=== PATIENT | male | born 1995 | race Caucasian/White ===

== ENCOUNTER → 2024-06-17 | Outpatient (CLI) | payer OTHER ==
[2024-06-17 16:58] VITALS: BP 113/68; PULSE 61; RESP 16; TEMP 98.1
--- NOTE | 2024-06-17 17:37 | P.SLEEP ---
History of Present Illness H&P Date: 06/17/24 Chief Complaint: Hypersomnia Is a 29-year-old the patient see me in the sleep center for hypersomnia it has been going on for the past 3 years. Prior to that, the patient had no issues with fatigue and sleepiness. Approximately 3 years ago, he started experiencing excessive fatigue and tiredness and sleepiness during the day and is currently at the point where he is falling asleep while driving and this occurred 1 time couple of weeks ago. 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 He goes to bed at around 9:30 PM and he wakes up 4:30 AM in the morning and on weekends, he wakes up 6:30 AM in the morning.. He has low motivation and a fall asleep while doing basic tasks. He has been noted to have some snoring. Has undergone a home sleep study through his primary care physician and the results came back negative. No history of head trauma. No meningitis. No encephalitis. No substance abuse. He has been diagnosed having depression in the past and he was treated with citalopram and currently is off treatment. No active signs of depression or anxiety or PTSD or bipolar disorder. The patient was taking naps during the day. Symptoms of sleepiness got worse after he eliminated those naps. His current [place] score is 20 out of 24. He is otherwise healthy. His body mass index is 21.9. He has not episodes of sleep paralysis and occasional hallucinations are also described by the patient where he has encountered limited dreams and images of the lungs and monsters while trying to wake up from sleep. No clear history of cataplexy although she was assessed, the patient has felt weak with buckling of the knees yet those occurred without any laughter or emotional upset does not take any medications for now. No reported grinding. No restlessness of lower extremities. No sleepwalking or sleep talking. No palpitations. No heartburn. No personal or family history of narcolepsy.. Review of Systems Constitutional: Reports daytime sleepiness, Denies chills, Denies fever Eyes: denies as per HPI, denies blurred vision, denies bulging eye, denies decreased vision, denies diplopia, denies discharge, denies dry eye, denies irritation, denies itching, denies pain, denies photophobia, denies loss of peripheral vision, denies loss of vision, denies tunnel vision/blind spots Ears: deny: decreased hearing, ear discharge, earache, tinnitus Ears, nose, mouth and throat: Reports as per HPI Breasts: absent: as per HPI, gynecomastia Cardiovascular: Reports as per HPI Respiratory: Reports as per HPI Gastrointestinal: Reports as per HPI Genitourinary: Reports as per HPI Musculoskeletal: Reports as per HPI Musculoskeletal: absent: ankle pain, ankle stiffness, ankle swelling, as per HPI, elbow pain, elbow stiffness, elbow swelling, foot pain, foot stiffness, foot swelling, hand pain, hand stiffness, hand swelling, hip pain, hip stiffness, hip swelling, knee pain, knee stiffness, knee swelling, shoulder pain, shoulder stiffness, shoulder swelling, wrist pain, wrist stiffness, wrist swelling Integumentary: Reports as per HPI Neurological: Reports as per HPI Psychiatric: Reports hypersomnia, Reports sleep disturbances Endocrine: Reports as per HPI, Reports fatigue Hematologic/Lymphatic: Reports as per HPI Allergic/Immunologic: Reports as per HPI Past Medical History Additional Past Medical History / Comment(s): Seasonal allergies History of Any Multi-Drug Resistant Organisms: None Reported Past Surgical History: No Surgical Hx Reported Past Psychological History: ADD/ADHD, Anxiety, Depression Additional Psychological History / Comment(s): Depression was diagnosed, ADHD and anxiety are not diagnosed. Smoking Status: Former smoker Past Alcohol Use History: Occasional Past Drug Use History: None Reported - Past Family History Mother Additional Family Medical History / Comment(s): Recently dx with autoimuune hepatitis. (also checking benign tumors or something - biopsy) Physical Exam Vitals: Vital Signs Temp Pulse Resp BP Pulse Ox 06/17/24 16:57 98.1 F 61 16 113/68 97 Intake and Output 06/17/24 06/17/24 06/17/24 06:59 14:59 22:59 Other: Weight 69.513 kg The patient appeared well nourished and normally developed. Vital signs as documented. Head exam is unremarkable. No scleral icterus or corneal arcus noted. Neck is without jugular venous distension, thyromegaly, or carotid bruits. Carotid upstrokes are brisk bilaterally. Lungs are clear to auscultation and percussion. Cardiac exam reveals the PMI to be normally sized and situated. Rhythm is regular. First and second heart sounds normal. No murmurs, rubs or gallops. Abdominal exam reveals normal bowel sounds, no masses, no organomegaly and no aortic enlargement. Extremities are nonedematous and both femoral and pedal pulses are normal. Examination of the skin revealed no evidence of significant rashes, suspicious appearing nevi or other concerning lesions. Neurologically, the patient is awake and alert and the patient does not have any focal neurological deficit. Cranial nerves are essentially intact. 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 Patient underwent a h ome sleep study through his primary care physician/Kimberli and the results were negative. He has encountered sleep paralysis and hallucinations. No clear-cut cataplexy. Rule out underlying narcoleptic disorder. Primary snoring Fall asleep while driving Previous history of COVID-19 infection more than 3 years ago. Plan The patient was given precautions not to drive specially when feeling drowsy or sleepy. Maintain regular sleep schedule as recommended Sleep hours on average of 8 to 9 hours per night in addition to power naps during the day The patient will need further investigation and this will include a polysomnography and a secondary MSLT. Will benefit from stimulation therapy and the choice of treatment will depend on the results of the PSG/MSLT. Avoid alcohol drinking. The patient has no substance abuse. Review of systems negative. No underlying medical disorder contributing to his pathologic hypersomnia. Sleep Note - Sleep Data ESS Total: 20 - Sleep Note Sleep Note: Temperature: 98.1 F Pulse Rate: 61 Respiratory Rate: 16 Blood Pressure: 113/68 SpO2: 97 Height: 5 ft 10 in Weight: 69.513 kg BMI: Neck Circumference: 14.5
== END ==
LOC: 3 N SLEEP 15:02
PROVIDERS: ATTEND Internal Medicine Critical Care Medicine
CPT/HCPCS: 99202

== ENCOUNTER 2024-07-14 19:46 | Outpatient (CLI) | payer OTHER ==
[2024-07-15 17:29] LABS: Urine Alcohol Negative (Negative); Urine Barbiturate Negative (Negative); Urine Cocaine Negative (Negative); Urine Methadone Negative (Negative); Urine Opiates Negative (Negative); Urine Phencyclidine Negative (Negative)
--- NOTE | 2024-07-21 19:42 | P.PCN ---
Date of Procedure: 07/14/24 Operative Findings: Polysomnography report History Is a 29-year-old the patient see me in the sleep center for hypersomnia it has been going on for the past 3 years. Prior to that, the patient had no issues with fatigue and sleepiness. Approximately 3 years ago, he started experiencing excessive fatigue and tiredness and sleepiness during the day and is currently at the point where he is falling asleep while driving and this occurred 1 time couple of weeks ago. 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 He goes to bed at around 9:30 PM and he wakes up 4:30 AM in the morning and on weekends, he wakes up 6:30 AM in the morning.. He has low motivation and a fall asleep while doing basic tasks. He has been noted to have some snoring. Has undergone a home sleep study through his primary care physician and the results came back negative. No history of head trauma. No meningitis. No encephalitis. No substance abuse. He has been diagnosed having depression in the past and he was treated with citalopram and currently is off treatment. No active signs of depression or anxiety or PTSD or bipolar disorder. The patient was taking naps during the day. Symptoms of sleepiness got worse after he eliminated those naps. His current [place] score is 20 out of 24. He is otherwise healthy. His body mass index is 21.9. He has not episodes of sleep paralysis and occasional hallucinations are also described by the patient where he has encountered limited dreams and images of the lungs and monsters while trying to wake up from sleep. No clear history of cataplexy although she was assessed, the patient has felt weak with buckling of the knees yet those occurred without any laughter or emotional upset does not take any medications for now. No reported grinding. No restlessness of lower extremities. No sleepwalking or sleep talking. No palpitations. No heartburn. No personal or family history of narcolepsy. Pertinent physical findings Body mass index is 22 and the weight is 153 pounds Technical description The patient was studied using a standard complex polysomnography protocol that included recording of the Lead II EKG, Central, occipital and frontal EEG, right and left outer canthus EOG, submental EMG, right and left anterior tibialis EMG, respiratory airflow by thermocouple and or pressure/flow transducer, respiratory efforts by abdominal and thoracic PVDF belts, oxygen saturation by cable oximetry. Position by observation synchronized the PSG. Equipment used: Gogo. Sleep characteristics The total time in bed was 447. 5 minutes. The total sleep time was 341.0 minutes. The overall sleep efficiency was 76.2%. The latency to sleep onset was 69 minutes. The sleep architecture was characterized by 0.6% stage I, 47.1% stage II, 20.4% stage III and a total of 32% REM sleep. The total arousal index was 8.3. The wake after sleep onset time was 36.5 minutes Respiratory analysis The patient had no obstructive events throughout the sleep study and the patient had a total of 5 central apneas with a central apnea index of 0.9. Oxygenation analysis The patient's baseline pulse ox while awake was 96%. No significant Vijaya desaturation was encountered throughout the sleep study. Minimum pulse ox was 94% Sleep continuity summary The patient had a total of 47 arousals with an index of 8.3. Respiratory arousal index was 0.2 Periodic limb movement The patient had a total of 3 periodic limb movement activity with arousals with an index of 0.5 Cardiac summary Average heart rate was 63 with a minimum heart rate of 57 and a maximum heart rate of 71 Assessment Primary snoring No evidence of any sleep breathing disorder. The patient's overall apnea- hypopnea index was 0. 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 He has encountered sleep paralysis and hallucinations. No clear-cut cataplexy. Rule out underlying narcoleptic disorder. Fall asleep while driving Previous history of COVID-19 infection more than 3 years ago. Plan This is a negative study for sleep breathing disorder. Will proceed with a secondary MSLT. MSLT report The MSLT was performed after a full night polysomnography during which there was more than 6 hours of sleep. The electrographic variables included EEG, EMG, EOG and EKG. Patient was monitored throughout 520-minute opportunities to nap at 2- hour intervals. For each nap, the patient was allowed 20 minutes to fall asleep. Once asleep, the patient was awakened after 15 minutes. Between naps, the patient was Alert. A sleep latency of 20 minutes indicated no sleep occurred. Results The patient was given a total of 5 opportunities to nap. Latency to nap #1 was 20 minutes, left #2 was 20 minutes, nap #3 was 7 minutes, night #4 was 16.5 minutes and that #5 was 20 minutes. The mean sleep latency for 5 naps was 16.7 minutes. No REM episodes or REM onset sleep was identified Impression Chronic hypersomnia, unexplained. No evidence of any sleep breathing disorder. The MSLT is not consistent with primary idiopathic hypersomnia or narcolepsy. Rule out insufficient sleep syndrome. Rule out other comorbidities contributing to his symptoms including anxiety/depression. Rule out post COVID-19 infection symptoms of hypersomnia. No reported substance abuse. No other significant comorbidities Plan We discussed the findings to the patient Clinically, the patient has excessive fatigue and sleepiness. Nevertheless, this has not been substantiated by any major pathology on his PSG with MSLT. The patient was given precautions not to drive specially when feeling drowsy or sleepy. Maintain regular sleep schedule as recommended Sleep hours on average of 8 to 9 hours per night in addition to power naps during the day Will benefit from stimulation therapy, will consider Provigil Avoid alcohol drinking. The patient has no substance abuse. Will continue to follow.
== END 2024-07-15 17:11 | disposition home or self-care (01) ==
LOC: 3 N SLEEP 19:46
PROVIDERS: ATTEND Internal Medicine Critical Care Medicine
DX: G47.33 Obstructive sleep apnea (adult) (pediatric) (principal); G47.419 Narcolepsy without cataplexy; Z86.16 Personal history of COVID-19
CPT/HCPCS: 80306; 95805; 95810